=== PATIENT | male | born 1945 | race Caucasian/White ===

== ENCOUNTER → 2018-11-22 | Outpatient (CLI) | payer MEDICARE ==
[2018-11-22 12:44] LABS: BASOPHILS # (AUTO) 0.1 10^3/uL (0.0-0.1); BASOPHILS % (AUTO) 1 % (0-10); EOSINOPHILS # (AUTO) 0.2 10^3/uL (0.0-0.3); EOSINOPHILS % (AUTO) 2 % (0-10); HEMATOCRIT 38 % (40-54); HEMOGLOBIN 12.1 G/DL (13.3-17.7); LYMPHOCYTES # (AUTO) 1.3 X 10^3 (1.0-4.0); LYMPHOCYTES % (AUTO) 12 % (12-44); MEAN CORPUSCULAR HEMOGLOBIN 31 PG (25-34); MEAN CORPUSCULAR HGB CONC 32 G/DL (32-36); MEAN CORPUSCULAR VOLUME 97 FL (80-99); MEAN PLATELET VOLUME 11.7 FL (7.4-10.4); MONOCYTES # (AUTO) 0.5 X 10^3 (0.0-1.0); MONOCYTES % (AUTO) 5 % (0-12); NEUTROPHILS # (AUTO) 8.1 X 10^3 (1.8-7.8); NEUTROPHILS % (AUTO) 80 % (42-75); PLATELET COUNT 155 10^3/uL (130-400); RED CELL DISTRIBUTION WIDTH 14.3 % (10.0-14.5); WHITE BLOOD COUNT 10.2 10^3/uL (4.3-11.0)
[2018-11-22 15:22] LABS: URIC ACID 4.6 MG/DL (2.6-7.2)
[2018-11-22 15:58] LABS: BACTERIA,URINE TRACE /HPF; BILIRUBIN,URINE NEGATIVE (NEGATIVE); CLARITY,URINE CLEAR; COLOR,URINE YELLOW; GLUCOSE, URINE (UA) NEGATIVE (NEGATIVE); KETONES,URINE NEGATIVE (NEGATIVE); LEUKOCYTE ESTERASE ,URINE 1+ (NEGATIVE); NITRITE,URINE NEGATIVE (NEGATIVE); PH,URINE 5 (5-9); PROTEIN,URINE 3+ (NEGATIVE); UROBILINOGEN,URINE NORMAL (NORMAL)
[2018-11-23 07:23] LABS: ALBUMIN 3.9 GM/DL (3.2-4.5); CALCIUM 9.4 MG/DL (8.5-10.1); CREATININE SERUM 1.27 MG/DL (0.60-1.30); POTASSIUM 4.9 MMOL/L (3.6-5.0)
== END ==
LOC: RAD FS 12:09
PROVIDERS: ATTEND Internal Medicine Nephrology
DX: E55.9 Vitamin D deficiency, unspecified (principal); I12.9 Hypertensive chronic kidney disease with stage 1 through stage 4 chronic kidney disease, or unspecified chronic kidney disease; N18.2 Chronic kidney disease, stage 2 (mild); R60.9 Edema, unspecified; Q61.3 Polycystic kidney, unspecified
CPT/HCPCS: 36415; 80069; 81000; 82306; 82570; 83970; 84156; 84550; 85025

== ENCOUNTER → 2019-04-07 | Outpatient (CLI) | payer MEDICARE ==
--- NOTE | 2019-04-07 14:02 | Diagnostic Imaging Report ---
Indication: Fall and right hip pain. Time of exam: 1:40 PM Findings: 2 views of the right hip are obtained. Femoral acetabular alignment is normal. Hip joint space is fairly well maintained. Femoral head and neck appears intact and no fracture is seen. Impression: No acute bony abnormality is detected. Dictated by: Dictated on workstation # [id number]
--- NOTE | 2019-04-07 14:04 | Diagnostic Imaging Report ---
Indication: Fall and back pain. Time of exam: 1:41 PM 3 views of the lumbar spine were obtained. There are postoperative changes of posterior instrumented fusion with vertical stabilization rods and pedicle screws transfixing L2-3 level. Hardware is intact. There is normal lordotic curvature. Vertebral body heights are maintained. No acute compression fracture is seen. Severe multilevel degenerative disc disease is noted with disc space narrowing and marginal spurring. Patient does have an aortic stent graft. Impression: Severe lumbar spondylosis. No acute compression fracture is detected. Dictated by: Dictated on workstation # [id number]
== END ==
LOC: RAD FS 13:33
PROVIDERS: ATTEND Nurse Practitioner
DX: M47.816 Spondylosis without myelopathy or radiculopathy, lumbar region (principal); W19.XXXA Unspecified fall, initial encounter; Z98.1 Arthrodesis status
CPT/HCPCS: 72100; 73502

== ENCOUNTER 2020-12-01 23:57 | Emergency (ER) | payer MEDICARE | END 2020-12-02 00:17 | disposition left against medical advice (07) | LOC: EDUNIT# 23:57 → ER 23:58 | DX: R19.7 Diarrhea, unspecified (principal); R68.83 Chills (without fever); R41.0 Disorientation, unspecified ==

== ENCOUNTER → 2021-02-17 | Outpatient (CLI) | payer MEDICARE ==
[2021-02-17 11:39] LABS: POTASSIUM 4.5 MMOL/L (3.6-5.0)
[2021-02-17 11:40] LABS: ALBUMIN 4.2 GM/DL (3.2-4.5); CREATININE SERUM 1.36 MG/DL (0.60-1.30)
[2021-02-17 14:53] LABS: PHOSPHORUS 3.6 MG/DL (2.3-4.7)
== END | disposition home or self-care (01) ==
LOC: LAB FS 10:45
PROVIDERS: ATTEND Internal Medicine Nephrology
DX: N18.30 Chronic kidney disease, stage 3 unspecified (principal)
CPT/HCPCS: 36415; 80069

== ENCOUNTER → 2021-08-22 | Outpatient (CLI) | payer MEDICARE ==
[2021-08-22 15:01] LABS: HEMATOCRIT 36 % (40-54); HEMOGLOBIN 11.7 g/dL (13.3-17.7); MEAN CORPUSCULAR HEMOGLOBIN 30 pg (25-34); MEAN CORPUSCULAR VOLUME 94 fL (80-99); WHITE BLOOD COUNT 10.8 10^3/uL (4.3-11.0)
[2021-08-22 15:02] LABS: BASOPHILS # (AUTO) 0.2 10^3/uL (0.0-0.1); BASOPHILS % (AUTO) 1 % (0-10); EOSINOPHILS # (AUTO) 0.6 10^3/uL (0.0-0.3); EOSINOPHILS % (AUTO) 2 % (0-10); LYMPHOCYTES # (AUTO) 8.7 X 10^3 (1.0-4.0); LYMPHOCYTES % (AUTO) 11 % (12-44); MEAN CORPUSCULAR HGB CONC 32 g/dL (32-36); MEAN PLATELET VOLUME 10.2 fL (9.0-12.2); MONOCYTES # (AUTO) 1.2 X 10^3 (0.0-1.0); MONOCYTES % (AUTO) 6 % (0-12); NEUTROPHILS % (AUTO) 81 % (42-75); PLATELET COUNT 150 10^3/uL (130-400)
[2021-08-22 16:18] LABS: ALBUMIN 4.3 GM/DL (3.2-4.5); CALCIUM 9.2 MG/DL (8.5-10.1); CREATININE SERUM 1.62 MG/DL (0.60-1.30); POTASSIUM 4.8 MMOL/L (3.6-5.0)
[2021-08-22 22:09] LABS: PHOSPHORUS 3.4 MG/DL (2.3-4.7)
[2021-08-22 22:11] LABS: URIC ACID 5.7 MG/DL (2.6-7.2)
== END ==
LOC: LAB FS 14:12
PROVIDERS: ATTEND Internal Medicine Nephrology
DX: I12.9 Hypertensive chronic kidney disease with stage 1 through stage 4 chronic kidney disease, or unspecified chronic kidney disease (principal); N18.31 Chronic kidney disease, stage 3a; Q61.3 Polycystic kidney, unspecified
CPT/HCPCS: 36415; 80069; 82306; 82570; 83970; 84156; 84550; 85025

== ENCOUNTER → 2021-11-17 | Outpatient (CLI) | payer MEDICARE ==
[2021-11-17 14:43] LABS: BASOPHILS % (AUTO) 0 % (0-10); EOSINOPHILS # (AUTO) 0.1 10^3/uL (0.0-0.3); EOSINOPHILS % (AUTO) 2 % (0-10); HEMATOCRIT 33 % (40-54); HEMOGLOBIN 10.6 g/dL (13.3-17.7); LYMPHOCYTES # (AUTO) 0.7 10^3/uL (1.0-4.0); LYMPHOCYTES % (AUTO) 9 % (12-44); MEAN CORPUSCULAR HEMOGLOBIN 30 pg (25-34); MEAN CORPUSCULAR HGB CONC 32 g/dL (32-36); MEAN CORPUSCULAR VOLUME 94 fL (80-99); MONOCYTES # (AUTO) 0.7 10^3/uL (0.0-1.0); MONOCYTES % (AUTO) 9 % (0-12); NEUTROPHILS # (AUTO) 6.5 10^3/uL (1.8-7.8); NEUTROPHILS % (AUTO) 80 % (42-75); PLATELET COUNT 110 10^3/uL (130-400); WHITE BLOOD COUNT 8.1 10^3/uL (4.3-11.0)
[2021-11-17 15:17] LABS: ALBUMIN 3.8 GM/DL (3.2-4.5); CALCIUM 8.9 MG/DL (8.5-10.1); CREATININE SERUM 1.22 MG/DL (0.60-1.30); POTASSIUM 4.5 MMOL/L (3.6-5.0)
[2021-11-18 15:10] LABS: PHOSPHORUS 3.6 MG/DL (2.3-4.7)
[2021-11-18 15:12] LABS: URIC ACID 5.6 MG/DL (2.6-7.2)
== END ==
LOC: LAB FS 13:51
PROVIDERS: ATTEND Internal Medicine Nephrology
DX: Q61.3 Polycystic kidney, unspecified (principal); N18.31 Chronic kidney disease, stage 3a; N25.89 Other disorders resulting from impaired renal tubular function
CPT/HCPCS: 36415; 80069; 82306; 83970; 84550; 85025

== ENCOUNTER → 2021-12-17 | Outpatient (CLI) | payer MEDICARE ==
[~2021-12-17] VITALS: Ht 172 cm; Wt 80.0 kg
[~2021-12-17] MED LIST: CATHETER FLUSH 10 ML SYR IVP PRN; REGADENOSON 0.4 MG/5 ML SYR (LEXISCAN) IV ONE
[2021-12-17 08:08] LABS: POTASSIUM 4.7 MMOL/L (3.6-5.0)
[2021-12-17 08:09] LABS: CALCIUM 9.1 MG/DL (8.5-10.1)
[2021-12-17 08:11] LABS: TOTAL PROTEIN 6.8 GM/DL (6.4-8.2)
[2021-12-17 08:12] LABS: BILIRUBIN,TOTAL 0.5 MG/DL (0.1-1.0)
[2021-12-17 08:14] LABS: CREATININE SERUM 1.24 MG/DL (0.60-1.30)
[2021-12-17 09:47] VITALS: BP 195/92
--- NOTE | 2021-12-17 13:24 | Cardiology Stress Test Report ---
Stress Test Report Date of Procedure/Referring: Date of Procedure: Dec 17, 2021 PCP Armando Rubalcava MD Admitting Physician Admitting Physician: Attending Physician: Emir Rios MD Indications: HTN Baseline Heart Rate: 77 Baseline Blood Pressure: Blood Pressure Systolic: 195 Blood Pressure Diastolic: 92 Baseline Vitals Vital Signs Date Time Temp Pulse Resp B/P (MAP) Pulse Ox O2 Delivery O2 Flow Rate FiO2 12/17/21 09:47 91 18 195/92 (126) Room Air Baseline EKG: Baseline EKG: RBBB Summary After explaining the procedure to the patient, he signed a consent and then brought to the stress nuclear laboratory. Patient received 0.4 mg Lexiscan for stress test, ECG, heart rate and blood pressure were monitored continuously. Resting and stress dose of radio tracer were injected, imaging was acquired and reviewed in short axis, horizontal long axis and vertical long axis views. TID: 1.1 SSS: 4 SDS: 2 EF: 53 1. Patient tolerated Lexiscan well 2. Baseline right bundle branch block persisted during test 3. Diaphragmatic attenuation with decreased uptake involving the mid to apical inferior wall with mild reversibility at the inferior apex, overall there is no significant ischemia or infarction on SPECT images 4. Normal left ventricular size, ejection fraction 53% EMIR RIOS MD Dec 17, 2021 13:24
== END ==
LOC: CARD 08:00
PROVIDERS: ATTEND Internal Medicine Cardiovascular Disease
DX: I08.0 Rheumatic disorders of both mitral and aortic valves (principal); I11.9 Hypertensive heart disease without heart failure; E78.2 Mixed hyperlipidemia; I25.10 Atherosclerotic heart disease of native coronary artery without angina pectoris
CPT/HCPCS: 78452; 80053; 80061; 93017; 93306; A9502; 36415

== ENCOUNTER 2021-12-31 10:30 | Day surgery (SDC) | payer MEDICARE ==
[~2021-12-31] VITALS: Ht 177.8 cm; Wt 77.4 kg
[2021-12-31] VITALS (10 sets, daily range): BP systolic 139–189; BP diastolic 64–95
[2021-12-31 10:00] LABS: HEMATOCRIT 36 % (40-54); HEMOGLOBIN 11.3 g/dL (13.3-17.7); MEAN CORPUSCULAR HEMOGLOBIN 30 pg (25-34); MEAN CORPUSCULAR HGB CONC 32 g/dL (32-36); MEAN CORPUSCULAR VOLUME 97 fL (80-99); MEAN PLATELET VOLUME 11.7 fL (9.0-12.2); PLATELET COUNT 134 10^3/uL (130-400); WHITE BLOOD COUNT 7.6 10^3/uL (4.3-11.0)
[2021-12-31 10:19] LABS: ALBUMIN 3.8 GM/DL (3.2-4.5); BILIRUBIN,TOTAL 0.4 MG/DL (0.1-1.0); CALCIUM 9.1 MG/DL (8.5-10.1); CREATININE SERUM 1.22 MG/DL (0.60-1.30); POTASSIUM 4.5 MMOL/L (3.6-5.0); TOTAL PROTEIN 6.5 GM/DL (6.4-8.2)
[2021-12-31 10:20] LABS: PROTHROMBIN TIME PATIENT 13.8 SEC (12.2-14.7)
--- NOTE | 2021-12-31 10:29 | Diagnostic Imaging Report ---
INDICATION: Aortic stenosis Portable chest 9:52 AM Heart size and pulmonary vascularity are normal. Lungs are clear. There are no effusions or pneumothoraces. IMPRESSION: No acute abnormalities in the chest Dictated by: Dictated on workstation # [id number]
[~2021-12-31 10:30] MED LIST changes: -CATHETER FLUSH 10 ML SYR IVP PRN; +HEParin (CATH LAB) 2,000 ML IV ONE; +LIDOCAINE 1% INJ 20 ML VIAL ONE; +LIDOCAINE 2% VISCOUS 15 ML UDC ONE; +MIDAZOLAM 5 MG/5 ML (VERSED) VIAL ONE; +NS IV 1000 ML 1,000 ML IV SCH; +NS IV 1000 ML 1,000 ML ONE; -REGADENOSON 0.4 MG/5 ML SYR (LEXISCAN) IV ONE; +fentaNYL INJ 100 MCG/2 ML AMP ONE
[2021-12-31] MEDS ORDERED: ALLO300T2 PO (10:36)
[2021-12-31] MEDS ORDERED: NF-SODBICA PO (10:36)
[2021-12-31] MEDS ORDERED: CYAN-41 PO (10:36)
[2021-12-31] MEDS ORDERED: DOXY100C5 PO (10:36)
[2021-12-31] MEDS ORDERED: FOLI1TAB33 PO (10:36)
[2021-12-31] MEDS ORDERED: OXYC-556 PO (10:36)
[2021-12-31] MEDS ORDERED: MORP30TA60 PO (10:36)
[2021-12-31] MEDS ORDERED: FERR325T18 PO (10:36)
[2021-12-31] MEDS ORDERED: METH2.5T PO (10:36)
[2021-12-31] MEDS ORDERED: SILV20CR14 TP (10:36)
[2021-12-31] MEDS ORDERED: ASPI-1238 PO (10:36)
--- NOTE | 2021-12-31 10:42 | Conscious Sedation/ASA ---
Conscious Sedation Pre-Proced Time 10:42 ASA Score 3 For ASA 3 and 4: Consider anesthesia and medical clearance. Also, for patients with a history of failed moderate sedation consider anesthesia. Airway Lungs Heart ASA score ASA 1: a normal healthy patient ASA 2: a patient with a mild systemic disease (mid diabetes, controlled hypertension, obesity x ASA 3: a patient with a severe systemic disease that limits activity (angina, COPD, prior Myocardial infarction) ASA 4: a patient with an incapacitating disease that is a constant threat to life (CHF, renal failure) ASA 5: a moribund patient not expected to survive 24 hrs. (ruptured aneurysm) ASA 6: a declared brain- patient whose organs are being harvested. For emergent operations, add the letter E after the classification Mallampati Classification Grade 3 Sedation Plan Analgesia, Amnesia, Plan communicated to team members, Discussed options with patient/fam, Discussed risks with patient/fam The patient is an appropriate candidate to undergo the planned procedure, sedation, and anesthesia. The patient immediately re-assessed prior to indication. EMIR BUTLER MD Dec 31, 2021 10:42
[2021-12-31] MEDS ORDERED: TRAZ-227 PO (10:43)
[2021-12-31] MEDS ORDERED: NF-PYRD60T PO (10:43)
[2021-12-31] MEDS ORDERED: GABA300C PO (10:43)
[2021-12-31] MEDS ORDERED: SIMV80TA21 PO (10:43)
[2021-12-31] MEDS ORDERED: LIDOCAINE 2% VISCOUS 15 ML UDC PO ONE (10:48)
[2021-12-31] MEDS ORDERED: fentaNYL INJ 100 MCG/2 ML AMP ONE (11:15)
[2021-12-31] MEDS ORDERED: MIDAZOLAM 2 MG/2 ML (VERSED) VIAL ONE (11:22)
--- NOTE | 2021-12-31 11:49 | Discharge Inst-Post CATH ---
Discharge Inst-CATH/EP Problems Reviewed?: Yes Post Cardiac Cath/EP D/C Inst Follow Up/Plan Appointment with Dr. Rios's office in 2 to 4 weeks <b>CARDIAC CATH/EP PROCEDURE DISCHARGE INSTRUCTIONS</b> ACTIVITY * Go Home directly and rest. * Limit activity of the leg (or wrist if it was used) for 7 days including aer obics, swimming, jogging, bicycling, etc. * Restrict stair-climbing for 7 days if possible, if not, climb up with your non-cath leg, then bring together on the same step. * Avoid lifting, pushing, pulling or excessive movement of the affected extremi ty for 7 days. * Customary sexual activity may be resumed after 2 days-use caution not to use a position that strains or causes pain to the affected extremity. * No driving for 24 hours. * NO SMOKING. * Avoid straining for bowel movements for 7 days. * Gentle walking on level ground is allowed. * Returning to work will depend on the type of procedure and the results. Your doctor will discuss this with you. CALL YOUR DOCTOR FOR ANY OF THE FOLLOWING: *If bleeding from the puncture site occurs- Apply gentle pressure to site with clean cloth and call your doctor or EMS. * If a knot or lump forms under the skin, increases in size, or causes pain. * If bruising appears to be worsening or moving further down your leg instead of disappearing. * Temperature above 101 F. CARE OF YOUR GROIN INCISION; * Bruising or purple discoloration of the skin near the puncture site is common. * You may shower only, no bathtub bathing for 5 days. Be careful to avoid slipping as your leg may feel stiff. * If a closure device was used on your femoral artery, please see the attached guide regarding care of the device and your leg. * Leave dressing on FOR 24 hours. CARE OF YOUR WRIST INCISION; * Bruising or purple discoloration of the skin near the puncture site is common. * You may shower. * DO NOT submerge wrist. * Leave dressing on FOR 24 hours. EMIR RIOS MD Dec 31, 2021 11:49
--- NOTE | 2021-12-31 11:54 | Cardiac Cath Report ---
Cardiac Cath Report Physician (s)/Lead Process Engineer (s) Physician EMIR BUTLER MD Pre-Procedure Diagnosis Pre-Procedure Diagnosis: Coronary artery disease Post-Procedure Note Procedure Start Date: Dec 31, 2021 Name of Procedure: Coronary angiogram Findings/Procedure Note PROCEDURE NOTE: 76 years old gentleman with severe aortic valve stenosis, peripheral arterial disease, had an abnormal stress test, scheduled for cardiac catheterization possible PTCA. After explaining the procedure to the patient, all pros and cons were explained, all questions were answered. The patient signed the consent and then he was placed on the cardiac catheterization laboratory. Groin was prepped SL fashion local anesthesia was used. Sheath placed in the right femoral artery, patient had abdominal aortic stent extending to the iliac artery that is very tortuous, I had significant difficulty advancing the Angus right catheter over Storq wire. Subselective angiogram to the right coronary artery was done, patient has total occlusion of the right coronary artery. I exchanged the catheter Angus left catheter over a long J-wire, was unable to engage the left main system exchange it and use AL-1 catheter without success. I exchanged the catheter and remove the sheath and put a long 6 Ethiopian sheath then I advanced Angus left catheter without success. Then I used MP 1 and I was able to engage the left system and did angiogram. Then the sheath was removed and exchanged again to s hort 6 Ethiopian sheath then closure device deployed I attempted to cross the aortic valve with a Storq wire with a Angus right c atheter without success FINDINGS: Hemodynamics LV was not evaluated, unable to cross the aortic valve Aorta 173/72 mean of 86 ANATOMY: Left Main has mild disease nonobstructive disease Left Anterior Descending is calcified artery with mild to moderate disease nonobstructive disease Left Circumflex has mild to moderate disease nonobstructive disease Right Coronary Artery is totally occluded proximally reconstructed by colla terals LV Gram was not evaluated, patient has heavily calcified aortic valve known to have aortic valve stenosis, was unable to cross the aortic valve Aorta was not evaluated, fluoroscopy showed a stent in the abdominal aorta extending to the iliac artery with heavily tortuous iliac arteries CONCLUSION: 1. Total occlusion of the right coronary artery reconstructed by collaterals, moderate disease in the left system 2. Severe aortic valve stenosis, was unable to cross the aortic valve 3. Severe peripheral arterial disease with abdominal aortic stent with iliac stent and heavily calcified iliac artery and tortuous arteries. DISCUSSION AND RECOMMENDATION: Patient will need referral for evaluation for aortic valve replacement and possible bypass surgery to the right coronary artery He has extensive peripheral arterial disease and he is at high risk for perioperative cardiovascular complication for his hip surgery Anesthesia Type: Conscious Sedation Estimated blood loss (mL): 35 ml Contrast Amount: 75 ml Total Radiation Dose: 1194 Post-Procedure Diagnosis Post-operative diagnosis: Severe aortic valve stenosis Coronary artery disease Peripheral arterial disease Hypertension EMIR BUTLER MD Dec 31, 2021 11:54
[2021-12-31] MEDS ORDERED: NS IV 1000 ML 1,000 ML IV SCH (12:00)
[2021-12-31] MEDS ORDERED: PATIENT MAY USE OWN MEDS, ALL PO SCH (12:00)
[2021-12-31] MEDS ORDERED: ACETAMINOPHEN 325 MG TABLET PO ONE (13:00)
[2021-12-31] MEDS ORDERED: ACETAMINOPHEN 325 MG TABLET ONE (13:00)
== END 2021-12-31 16:30 | disposition home or self-care (01) ==
LOC: CATH 10:30 → SDC 12:04 → CATH 16:30
PROVIDERS: ATTEND Internal Medicine Cardiovascular Disease
DX: I25.10 Atherosclerotic heart disease of native coronary artery without angina pectoris (principal); I73.9 Peripheral vascular disease, unspecified; I10 Essential (primary) hypertension; I08.0 Rheumatic disorders of both mitral and aortic valves; Z79.899 Other long term (current) drug therapy; E78.2 Mixed hyperlipidemia
CPT/HCPCS: 71045; 80053; 85027; 85610; 85730; 87081; 93005; 93312; 93454; C1760; C1769; C1894 ×2; 36415

== ENCOUNTER → 2023-05-05 | Outpatient (CLI) | payer MEDICARE ==
[~2023-05-05] MED LIST changes: +ALLO300T2 PO; +ASPI-1238 PO; +CYAN-41 PO; +DOXY100C5 PO; +FERR325T18 PO; +FOLI1TAB33 PO; +GABA300C PO; -HEParin (CATH LAB) 2,000 ML IV ONE; -LIDOCAINE 1% INJ 20 ML VIAL ONE; -LIDOCAINE 2% VISCOUS 15 ML UDC ONE; +METH2.5T PO; -MIDAZOLAM 5 MG/5 ML (VERSED) VIAL ONE; +MORP30TA60 PO; +NF-PYRD60T PO; +NF-SODBICA PO; -NS IV 1000 ML 1,000 ML IV SCH; -NS IV 1000 ML 1,000 ML ONE; +OXYC-556 PO; +SILV20CR14 TP; +SIMV80TA21 PO; +TRAZ-227 PO; -fentaNYL INJ 100 MCG/2 ML AMP ONE
== END ==
LOC: CARD 14:40
PROVIDERS: ATTEND Internal Medicine Cardiovascular Disease
DX: I11.9 Hypertensive heart disease without heart failure (principal); I34.0 Nonrheumatic mitral (valve) insufficiency; I35.1 Nonrheumatic aortic (valve) insufficiency; Z95.2 Presence of prosthetic heart valve
CPT/HCPCS: 93306

== ENCOUNTER → 2023-05-19 | Outpatient (CLI) | payer MEDICARE ==
[~2023-05-19] MED LIST changes: +CATHETER FLUSH 10 ML SYR IVP PRN; +REGADENOSON 0.4 MG/5 ML SYR IV ONE
[2023-05-19 13:10] VITALS: BP 107/53
--- NOTE | 2023-05-19 15:12 | Cardiology Stress Test Report ---
Stress Test Report Date of Procedure/Referring: Date of Procedure: May 19, 2023 PCP Nikolay Rubalcava MD Admitting Physician Admitting Physician: Attending Physician: Carlos Rios MD Baseline Heart Rate: 80 Baseline Blood Pressure: Blood Pressure Systolic: 107 Blood Pressure Diastolic: 53 Baseline Vitals Vital Signs Date Time Temp Pulse Resp B/P (MAP) Pulse Ox O2 Delivery O2 Flow Rate FiO2 05/19/23 13:10 84 17 107/53 (71) 99 Room Air Baseline EKG: Baseline EKG: RBBB Summary After explaining the procedure to the patient, he signed a consent and then brought to the stress nuclear laboratory. Patient received 0.4 mg Lexiscan for stress test, ECG, heart rate and blood pressure were monitored continuously. Resting and stress dose of radio tracer were injected, imaging was acquired and reviewed in short axis, horizontal long axis and vertical long axis views. TID: 1.08 SSS: 4 SDS: 0 EF: 57 Patient tolerated Lexiscan well Baseline right bundle branch block persisted during test No attenuation correction was done, there is a fixed defect at the inferior wall but overall there is no significant ischemia or infarction on SPECT images Normal left ventricular size, ejection fraction 57% Copy Copies To 1: NIKOLAY RUBALCAVA MD, BASHAR J MD May 19, 2023 15:12
== END ==
LOC: CARD 11:18
PROVIDERS: ATTEND Internal Medicine Cardiovascular Disease
DX: I45.10 Unspecified right bundle-branch block (principal); I25.10 Atherosclerotic heart disease of native coronary artery without angina pectoris
CPT/HCPCS: 78452; 93017; A9502